=== PATIENT | male | born 1970 | race Hispanic/Latino ===

== ENCOUNTER 2021-01-03 19:55 | Emergency (ER) | payer OTHER ==
[2021-01-03] MEDS ORDERED: Acetaminophen 500 MG TAB ONE (23:54)
[2021-01-04] MEDS ORDERED: Acetaminophen 500 MG TAB ONE (00:22)
== END 2021-01-04 00:25 | disposition home or self-care (01) ==
LOC: ERS 19:55
DX: R51.9 Headache, unspecified (principal); E11.9 Type 2 diabetes mellitus without complications; E78.2 Mixed hyperlipidemia; E66.9 Obesity, unspecified; J45.909 Unspecified asthma, uncomplicated; I10 Essential (primary) hypertension; Z87.891 Personal history of nicotine dependence
CPT/HCPCS: 70450

== ENCOUNTER 2021-02-10 13:02 | Outpatient (CLI) | payer OTHER | END 2021-02-10 13:03 | disposition home or self-care (01) | LOC: BICULT 13:02 | PROVIDERS: ATTEND Otolaryngology Plastic Surgery within the Head & Neck | DX: E04.2 Nontoxic multinodular goiter (principal) | CPT/HCPCS: 76536 ==